=== PATIENT | female | born 1935 | race Caucasian/White ===

== ENCOUNTER 2018-07-06 13:01 | Outpatient (CLI) | payer MEDICARE, BC ==
[2018-07-06 14:59] LABS: #Eosinphils 0.2 thou/uL (0.0-0.7); #Lymphocytes 1.2 thou/uL (1.20-3.40); #Monocytes 0.6 thou/uL (0.11-0.59); #Neutrophils 3.9 thou/uL (1.40-6.50); %Basophils 0.4 % (0.0-1.0); %Eosinophils 3.7 % (0.0-10.0); %Lymphocytes 20.9 % (21.0-51.0); %Monocytes 9.6 % (0.0-10.0); %Neutrophils 65.4 % (42.0-75.0); Hemoglobin 12.6 g/dL (12.0-16.0); Mean Corpuscular HGB CONC 31.9 g/dL (32.0-36.0); Mean Platelet Volume 6.7 fL (7.4-10.4); Platelet Count 242 thou/uL (130-400); RBC Distribution Width 12.9 % (11.5-14.5); Red Blood Cell (RBC) Count 3.94 mill/uL (4.20-5.40)
[2018-07-06 15:05] LABS: Prothrombin Time 13.1 SEC (12.0-14.7)
[2018-07-06 15:11] LABS: Bilirubin Negative (Negative); Blood, Urine Negative (Negative); Clarity CLEAR (Clear); Glucose, Urine (Dipstick) Negative (Negative); Leukocyte Trace (Negative); Nitrite Negative (Negative); Protein, Urine (Dipstick) Negative (Neg-Trace); Urobilinogen 0.2 mg/dL (0.2-1.0)
[2018-07-06 15:16] LABS: Bacteria/HPF None Seen HPF (None Seen); Hyaline Casts/LPF 0-3 HYALINE CAST LPF (0-3 Hyaline); Pathc Cast-AUWi Flag 0.14 (0-2.49); RBC/HPF 0-3 HPF (0-3); Squamous Epithelial 0-3 HPF (0-3); WBC/HPF 0-3 HPF (0-3)
[2018-07-06 15:34] LABS: Anion Gap 13 mmol/L (10-20); BUN (Urea Nitrogen) 19 mg/dL (9.8-20.1); Calc. Creatinine Clearance 0 mL/min (70-130); Calcium 9.8 mg/dL (7.8-10.44); Carbon Dioxide 26 mmol/L (23-31); Chloride 102 mmol/L (98-107); Estimated GFR-MDRD 59; Glucose 135 mg/dL (83-110); Potassium 4.1 mmol/L (3.5-5.1); Sodium 137 mmol/L (136-145)
== END 2018-07-06 13:02 | disposition home or self-care (01) ==
LOC: LABBT 13:01
PROVIDERS: ATTEND Orthopaedic Surgery
DX: Z01.812 Encounter for preprocedural laboratory examination (principal); Z96.651 Presence of right artificial knee joint
CPT/HCPCS: 80048; 81001; 85025; 85610; 87081

== ENCOUNTER 2018-07-18 08:08 | Inpatient (IN) | payer MEDICARE, BC ==
[2018-07-06 13:30] VITALS: BMI 23.3
[2018-07-18] MEDS ORDERED: Midazolam HCl 2 mg/2 ml Vial ONE (08:32)
[2018-07-18] MEDS ORDERED: Fentanyl 100 MCG/2 ML VIAL ONE (08:32)
[2018-07-18] MEDS ORDERED: Ropivacaine 0.2% HCl/PF 20 ML ONE (08:32)
[2018-07-18] MEDS ORDERED: ceFAZolin Sodium 2 GM/100 ML BAG ONE (08:43)
[2018-07-18] MEDS ORDERED: Tranexamic Acid 1,000 MG/10 ML VIAL ONE (08:44)
[2018-07-18] MEDS ORDERED: Sodium Chloride 0.9% 100 ML ONE (08:48)
[2018-07-18] MEDS ORDERED: Bupivacaine 0.5% 50 ML in Sodium Chloride 0.9% 50 ML NERVE BLCK SCH (09:34)
[2018-07-18] MEDS ORDERED: Ondansetron PF 4 MG/2 ML Vial IVP PRN ×2 (09:34→10:13)
[2018-07-18] MEDS ORDERED: Promethazine HCl 25 MG/ML VIAL IM PRN ×3 (09:34→11:43)
[2018-07-18] MEDS ORDERED: HYDROcodone/Acetaminophen 5/325 mg Tablet PO PRN (09:34)
[2018-07-18] MEDS ORDERED: traMADol HCl 50 MG TAB PO PRN (09:34)
[2018-07-18] MEDS ORDERED: Fentanyl 100 MCG/2 ML VIAL IV PRN (09:35)
[2018-07-18] MEDS ORDERED: Acetaminophen 325 MG TAB PO PRN (10:13)
[2018-07-18] MEDS ORDERED: Zolpidem Tartrate 5 MG TAB PO PRN (10:13)
[2018-07-18] MEDS ORDERED: HYDROcodone/Acetaminophen 10/325 mg Tablet PO PRN ×2 (10:13)
[2018-07-18] MEDS ORDERED: diphenhydrAMINE 25 MG CAP PO PRN (10:13)
[2018-07-18] MEDS ORDERED: Melatonin 3 MG TAB PO PRN (10:16)
[2018-07-18] MEDS ORDERED: Acetaminophen 500 MG TAB PO PRN (10:16)
[2018-07-18] MEDS ORDERED: SUMAtriptan Succinate 50 MG TAB PO PRN (10:28)
[2018-07-18] MEDS ORDERED: Ondansetron HCl/PF 4 MG/2 ML Vial IVP PRN (11:43)
[2018-07-18] MEDS ORDERED: Promethazine HCl 25 MG/ML VIAL SLOW IVP PRN (11:43)
[2018-07-18] MEDS ORDERED: Ropivacaine 0.5% HCl/PF (150 MG/30 ML VIAL) ONE (11:50)
[2018-07-18] MEDS ORDERED: Lidocaine 1% PF 5 ML VIAL ONE (11:51)
[2018-07-18] MEDS ORDERED: ePHEDrine 50 MG/ML VIAL ONE (11:51)
[2018-07-18] MEDS ORDERED: Ondansetron PF 4 MG/2 ML Vial ONE (11:51)
[2018-07-18] MEDS ORDERED: PROPOFOL 200 MG/20 ML VIAL ONE (11:51)
--- NOTE | 2018-07-18 13:59 | RAD ---
RIGHT KNEE 2 VIEWS: Date: 07/18/18 HISTORY: Status post total knee replacement. FINDINGS: Recent total knee replacement changes are noted. No dislocation or periprosthetic fracture. There is evidence for a sewing needle in the medial soft tissue of the upper portion of the lower leg. IMPRESSION: Unremarkable postop total knee arthroplasty changes. Sewing needle in the medial soft tissues of the upper portion of the lower leg. POS: [facility]
[2018-07-18] MEDS: CEFAZOLIN 2 GM, Admixture Fee 1 EACH in Sodium Chloride 0.9% 100 ML IVPB SCH ×2 (16:23→21:22)
[2018-07-18] MEDS: Sodium Chloride 0.9% 1,000 ML IV SCH ×2 (16:24→20:38)
--- NOTE | 2018-07-18 18:07 | OP ---
DATE OF PROCEDURE: 07/18/2018 PREOPERATIVE DIAGNOSIS: End-stage tricompartmental osteoarthritis, right knee. POSTOPERATIVE DIAGNOSIS: End-stage tricompartmental osteoarthritis, right knee. OPERATIVE PROCEDURE: Cemented, Cruciate sparing, Computer assisted Navigated Right total knee arthroplasty. MODEL MAKER FIBERGLASS: Saurabh Mcelroy PA-C ANESTHESIA: General via LMA augmented with indwelling adductor canal block and anterior sciatic single-shot block. COMPONENTS USED: [employer] [employer] [facility] Triathlon primary cemented cruciate sparing, cemented size 4 femoral component with a size 3 cemented primary tibial base plate, 9 mm polyethylene fixed bearing insert, and A29 patella button. TOURNIQUET TIME: 49 minutes at 300 mmHg. ESTIMATED BLOOD LOSS: Less than 100. FINDINGS: End-stage severe degenerative tricompartmental disease [id number] arthrosis, periarticular osteophyte formation, large serous effusion, and hypertrophic synovium. INPUT: 1000 mL crystalloid. OUTPUT: 150 mL of clear yellow urine. DRAINS: None. SPECIMENS: None. COMPLICATIONS: None. COUNTS: Correct. INDICATION FOR SURGERY: Magda is an 82-year-old white female, who has had progressive right knee pain and problem with standing and walking for the last 5 to 7 years. She has failed conservative management and elected to proceed with total knee arthroplasty as definitive treatment of her pain. PROCEDURE IN DETAIL: After informed consent was obtained in the preoperative holding area, the patient was taken to the operative suite where general anesthesia was induced. Once adequate level of general anesthesia was obtained, the patient was positioned and a well-padded tourniquet was placed around the right proximal thigh. The right lower extremity was then prepped and draped in the usual sterile fashion. Prior to exsanguination, a time-out was called and all members of the surgical team agreed upon site, surgeon, and patient. The extremity was then exsanguinated and the tourniquet was raised. A midline longitudinal incision was then made directly over the patella extending 2 fingerbreadths above the superior pole of the patella and 2 fingerbreadths inferior to the inferior patellar pole of the patella. Deeper subcutaneous layers were dissected sharply and local bleeding was controlled with Bovie electrocautery. A quad tendon longitudinal split was then made sharply and a median parapatellar arthrotomy was carried out both sharp and with Bovie electrocautery, carried down to 1 fingerbreadth medial to the tibial tubercle. The knee was then placed into flexion and the patella was everted nicely, and a copious fat pad ectomy was performed allowing for greater exposure of the tibia. The computer-assisted distal femoral fiducial was then placed and pinned firmly, and the distal femoral cutting guide was pinned firmly into place. The oscillating saw was then used to remove the appropriate amount of bone. The 4- in-1 cutting block was then placed on the distal femur and the oscillating saw was used to remove the appropriate amount of bone off the anterior, posterior, and chamfer cuts. After completion of bone cuts, the anterior cruciate ligament was resected sharply and the posterior cruciate ligament retractor was placed and the tibia was subluxed for better exposure. Partial meniscectomies were carried out, and the tibial computer-assisted fiducial was pinned, and the cutting guide was placed. Oscillating saw was then used to remove the bone, with Hohmann retractors used to take care and protect the collateral ligaments. After the tibial resection was performed, a laminar corporate banking officer was placed in between the freshened bone cuts. The knee placed at 90 degrees and further bilateral meniscectomies were carried out , and the curved osteotome and curettage were used to remove any excess bone spurs in the posterior compartment. The trial femoral component, tibial baseplate were placed with the appropriate polyethylene trial insert with an appropriate polyethylene spacer and patellar button. The knee was taken through full range of motion with flexion and extension from 0 to 90 degrees and patellar broach squarely in the trochlea without any squinting or subluxation noted. The knee was also stable to varus and valgus stressing at 0, 15, 45, and 90 degrees of flexion. The drawer was negative. All trial components were then removed and the keel punch was used to provide the appropriate defect in the tibia with a mallet. The freshened bone cuts were copiously irrigated with pulsatile lavage of about 1.5 L to remove all excess debris. The freshened bone cuts were then dried with suction and lap sponge. The knee was placed in flexion and retractors were placed to provide access to all bone cuts. Tobramycin-impregnated methyl methacrylate cement was then placed on the freshened bone cuts and implants which were malleted firmly into place. Curettage and Trinity elevators were used to remove any excess bone cement. The knee was placed into full extension and the patellar button was placed under compression, and the cement was allowed to cure. Once completed, the components were again taken through full range of motion and copious irrigation of the knee was carried out with another liter of normal saline. All components were inspected fully with full range of motion and varus and valgus stressing. There was no laxity noted and full extension was observed clinically. Primary closure was accomplished with #2 interrupted Vicryl stitch of the arthrotomy defect. This was oversewn with a #2 running Quill barbed stitch. The subcutaneous layer was then closed with a running 0 barbed Monocryl stitch and skin closure accomplished with a running subcuticular 3-0 Monocryl barbed Quill stitch and augmented with cement on the skin. Tourniquet was lowered. Good spontaneous return of distal pulses was noted clinically and a sterile dressing was applied to the incision. The procedure was terminated without any complications. The patient was awakened in the operative suite and taken to the recovery room in stable condition. Job ID: [id number] [facility]
[2018-07-18] MEDS: Aspirin 81 mg Enteric Coated Tablet PO SCH (20:38)
[2018-07-18] MEDS: Zolpidem Tartrate 5 MG TAB PO PRN (20:38)
[2018-07-18] MEDS: Senokot S 8.6-50 MG TAB PO SCH (20:39)
[2018-07-18] MEDS: Ferrous Gluconate 324 MG TAB PO SCH (20:39)
[2018-07-18] MEDS: Fluticasone Propionate Nasal Spray 16 gm Bottle NASAL SCH (21:20)
[2018-07-18] MEDS: Anastrozole 1 MG TAB PO SCH (21:20)
[2018-07-19] MEDS: HYDROcodone/Acetaminophen 5/325 mg Tablet PO PRN ×5 (00:17→21:30)
[2018-07-19] MEDS: Ketorolac Tromethamine 30 MG/ML VIAL IVP PRN ×2 (00:28→12:56)
--- NOTE | 2018-07-19 02:39 | PDOC.PN ---
- Subjective Encounter Start Date: 07/18/18 Encounter Start Time: 22:00 Subjective: awake but a bit confused at present -: no sob -: per staff she just got sleeping pill + narcotic - Objective MAR Reviewed: Yes Vital Signs & Weight: Vital Signs (12 hours) Temp Pulse Resp BP Pulse Ox 07/19/18 00:00 99.6 F 96 16 166/84 H 96 07/18/18 20:00 98.8 F 78 16 139/81 96 Weight Weight 140 lb I&O: 07/17/18 07/18/18 07/19/18 06:59 06:59 06:59 Intake Total 100.5 Balance 100.5 Phys Exam - Physical Examination HEENT: PERRLA, moist MMs Neck: no JVD, supple Respiratory: no wheezing, no rales Cardiovascular: RRR, no significant murmur Gastrointestinal: soft, non-tender Musculoskeletal: pulses present right knee in dressing Neurological: non-focal, moves all 4 limbs Dx/Plan (1) Status post total knee replacement, right Code(s): Z96.651 - PRESENCE OF RIGHT ARTIFICIAL KNEE JOINT Status: Acute (2) H/O malignant neoplasm of breast Code(s): Z85.3 - PERSONAL HISTORY OF MALIGNANT NEOPLASM OF BREAST Status: Chronic Comment: h/o ductal ca, ER, [place] +ve on anastrazole (3) Osteoarthritis Code(s): M19.90 - UNSPECIFIED OSTEOARTHRITIS, UNSPECIFIED SITE Status: Chronic Qualifiers: Osteoarthritis location: unspecified site (4) GERD (gastroesophageal reflux disease) Code(s): K21.9 - GASTRO-ESOPHAGEAL REFLUX DISEASE WITHOUT ESOPHAGITIS Status: Chronic - Plan likely has underlying dementia or mild cognitive disorder -: is on asp bid, ropivacaine nr block, ultram, toradol and norco prn -: fentanyl prn, celexa, iron and anastrazole -: hemostable, will f/u -: to work with PT per ortho adv * . Review of Systems - Medications/Allergies Allergies/Adverse Reactions: Allergies Allergy/AdvReac Type Severity Reaction Status Date / Time No Known Allergies Allergy Verified 07/06/18 13:32 Medications: Current Medications Acetaminophen (Tylenol) 650 mg PO Q4H PRN PRN Reason: Headache/Fever or Pain Hydrocodone Bitart/Acetaminophen ([place] 5/325) 1 tab PO Q4H PRN PRN Reason: Mild Pain (1-3) Hydrocodone Bitart/Acetaminophen ([place] 5/325) 2 tab PO Q4H PRN PRN Reason: For Moderate Pain 4-6 Last Admin: 07/19/18 00:17 Dose: 2 tab Anastrozole (Arimidex) 1 mg PO HS [facility] Last Admin: 07/18/18 21:20 Dose: 1 mg Aspirin (Ecotrin) 81 mg PO BID [facility] Last Admin: 07/18/18 20:38 Dose: 81 mg Cholecalciferol (Vitamin D3) 2,000 units PO DAILY [facility] Citalopram Hydrobromide (Celexa) 20 mg PO DAILY [facility] Diphenhydramine HCl (Benadryl) 25 mg PO Q6H PRN PRN Reason: Itching Fentanyl (Sublimaze) 50 mcg IV Q1H PRN PRN Reason: moderate breakthrough pain Ferrous Gluconate (Fergon) 324 mg PO BID [facility] Last Admin: 07/18/18 20:39 Dose: 324 mg Fluticasone Propionate (Flonase Nasal [place]) 0 gm NASAL BID [facility] Last Admin: 07/18/18 21:20 Dose: 1 spr Ropivacaine 250 ml/ Device 250 mls @ 0 mls/hr [facility]ERVE BLCK [facility] Bupivacaine HCl 50 ml/ Sodium (Chloride) 100 mls @ 0 mls/hr NERVE BLCK [facility] Sodium Chloride (Normal Saline 0.9%) 1,000 mls @ 100 mls/hr IV .Q10H [facility] Last Admin: 07/18/18 20:38 Dose: Not Given Iron/Minerals/Multivitamins (Theragran M) 1 tab PO DAILY [facility] Ketorolac Tromethamine (Toradol) 15 mg IVP Q6H PRN PRN Reason: Moderate Pain (4-6) Stop: 07/21/18 09:35 Last Admin: 07/19/18 00:28 Dose: 15 mg Melatonin (Melatonin) 3 mg PO HS PRN PRN Reason: Insomnia Ondansetron HCl (Zofran) 4 mg IVP Q6H PRN PRN Reason: Nausea/Vomiting Ondansetron HCl (Zofran) 4 mg IVP Q6H PRN PRN Reason: Nausea/Vomiting Oxybutynin Chloride (Ditropan) 5 mg PO DAILY [facility] Pantoprazole Sodium (Protonix) 40 mg PO BID PRN PRN Reason: GERD Polyethylene Glycol (Miralax) 17 gm PO DAILY [facility] Promethazine HCl (Phenergan) 12.5 mg IM Q4H PRN PRN Reason: Nausea Promethazine HCl (Phenergan) 12.5 mg IM Q4H PRN PRN Reason: Nausea/Vomiting Senna/Docusate Sodium (Senokot S) 2 tab PO BID [facility] Last Admin: 07/18/18 20:39 Dose: 2 tab Sodium Chloride (Flush - Normal Saline) 10 ml IVF PRN PRN PRN Reason: Saline Flush Sumatriptan Succinate (Imitrex) 50 mg PO ONE PRN PRN Reason: Migraine Headache Stop: 07/21/18 10:29 Tramadol HCl (Ultram) 50 mg PO Q6H PRN PRN Reason: Mild Pain (1-3) Tramadol HCl (Ultram) 100 mg PO Q6H PRN PRN Reason: Moderate Pain 4-6 Zolpidem Tartrate (Ambien) 5 mg PO HSPRN PRN PRN Reason: Insomnia Last Admin: 07/18/18 20:38 Dose: 5 mg
[2018-07-19] MEDS: Sodium Chloride 0.9% 1,000 ML IV SCH ×2 (04:55→16:12)
[2018-07-19 05:28] LABS: Mean Corpuscular HGB CONC 32.1 g/dL (32.0-36.0); Mean Corpuscular Hemoglobin 31.1 pg (27.0-31.0); Mean Corpuscular Volume 96.9 fL (78.0-98.0); Mean Platelet Volume 6.9 fL (7.4-10.4); Platelet Count 178 thou/uL (130-400); RBC Distribution Width 12.9 % (11.5-14.5); Red Blood Cell (RBC) Count 3.53 mill/uL (4.20-5.40); White Blood Cell (WBC) Count 10.3 thou/uL (4.8-10.8)
--- NOTE | 2018-07-19 08:43 | PRG ---
DATE OF SERVICE: 07/19/2018 SUBJECTIVE: Ms. Man is an 82-year-old white female, postop day #1 from a right total knee arthroplasty. She is scheduled to be transferred to [facility] tomorrow. OBJECTIVE: VITAL SIGNS: Temperature 98.4, pulse 90, respiratory rate 16 and nonlabored. O2 saturation 98% on room air, and blood pressure is 117/81. GENERAL: She is alert and oriented to person, place, time, and situation, grossly nonfocal. Responsive and appropriate with examiner. EXTREMITIES: She is neurovascularly intact in both lower extremities. There is no strike through in her wound. LABORATORY DATA: Hemoglobin and hematocrit 11 and 34. IMPRESSION: An 82-year-old white female, postoperative day #1 right total knee arthroplasty, doing very well. PLAN: Continue current management and transfer to swing bed either tomorrow or on postop day #3. Job ID: [id number]
[2018-07-19] MEDS: traMADol HCl 50 MG TAB PO PRN (08:46)
[2018-07-19] MEDS: Fluticasone Propionate Nasal Spray 16 gm Bottle NASAL SCH ×2 (09:41→21:28)
[2018-07-19] MEDS: Polyethylene Glycol 3350 17 GM Packet PO SCH (09:41)
[2018-07-19] MEDS: Senokot S 8.6-50 MG TAB PO SCH ×2 (09:42→21:30)
[2018-07-19] MEDS: Oxybutynin 5 MG TAB PO SCH (09:42)
[2018-07-19] MEDS: Citalopram 20 MG TAB PO SCH (09:42)
[2018-07-19] MEDS: Aspirin 81 mg Enteric Coated Tablet PO SCH ×2 (09:42→21:30)
[2018-07-19] MEDS: Ferrous Gluconate 324 MG TAB PO SCH ×2 (09:42→21:30)
[2018-07-19] MEDS: Multivitamin W/ Minerals 1 TAB PO SCH (09:42)
[2018-07-19] MEDS: Ropivacaine HCl/PF 250 ML in Premix Bag 1 BAG NERVE BLCK SCH (10:38)
--- NOTE | 2018-07-19 16:15 | PDOC.PN ---
- Subjective Encounter Start Date: 07/19/18 Encounter Start Time: 16:14 Subjective: still has post -op pain requiring CIGARETTE MAKING EXAMINER,IV and PO narcotics -: o/w no new complaints - Objective MAR Reviewed: Yes Vital Signs & Weight: Vital Signs (12 hours) Temp Pulse Resp BP Pulse Ox 07/19/18 15:40 97.9 F 81 12 97/61 93 L 07/19/18 12:54 97.6 F 76 16 107/71 94 L 07/19/18 07:05 98.3 F 75 12 108/68 93 L 07/19/18 04:42 98.4 F 90 16 117/81 98 Weight Admit Weight 140 lb Weight 140 lb I&O: 07/18/18 07/19/18 07/20/18 06:59 06:59 06:59 Intake Total 1900.5 Output Total 850 Balance 1050.5 Result Diagrams: 07/19/18 04:59 Additional Labs: Laboratory Tests 07/06/18 07/19/18 14:25 04:59 Hgb 12.6 11.0 L Phys Exam - Physical Examination Constitutional: NAD HEENT: PERRLA, moist MMs, sclera anicteric, oral pharynx no lesions Neck: no nodes, no JVD, supple, full ROM Respiratory: no wheezing, no rales, no rhonchi, clear to auscultation bilateral Cardiovascular: RRR, no significant murmur, no rub Gastrointestinal: soft, non-tender, no distention, positive bowel sounds Musculoskeletal: no edema, pulses present Neurological: non-focal, normal sensation, moves all 4 limbs Psychiatric: normal affect, A&O x 3 Skin: no rash Dx/Plan (1) GERD (gastroesophageal reflux disease) Code(s): K21.9 - GASTRO-ESOPHAGEAL REFLUX DISEASE WITHOUT ESOPHAGITIS Status: Chronic (2) Status post total knee replacement, right Code(s): Z96.651 - PRESENCE OF RIGHT ARTIFICIAL KNEE JOINT Status: Acute (3) H/O malignant neoplasm of breast Code(s): Z85.3 - PERSONAL HISTORY OF MALIGNANT NEOPLASM OF BREAST Status: Chronic Comment: h/o ductal ca, ER, [place] +ve on anastrazole (4) Osteoarthritis Code(s): M19.90 - UNSPECIFIED OSTEOARTHRITIS, UNSPECIFIED SITE Status: Chronic Qualifiers: Osteoarthritis location: unspecified site - Plan PT/OT, DVT proph w/SCDs ASA BID for DVT prophylaxis -: HD stable. cont home meds as below -: labs in am -: IM team will follow -: pain control per primary team * . Review of Systems - Review of Systems Constitutional: negative: fever, chills, sweats, weakness, malaise, other Respiratory: negative: Cough, Dry, Shortness of Breath, Hemoptysis, SOB with Excertion, Pleuritic Pain, Sputum, Wheezing Cardiovascular: negative: chest pain, palpitations, orthopnea, paroxysmal nocturnal dyspnea, edema, light headedness, other Gastrointestinal: negative: Nausea, Vomiting, Abdominal Pain, Diarrhea, Constipation, Melena, Hematochezia, Other Genitourinary: negative: Dysuria, Frequency, Incontinence, Hematuria, Retention , Other Musculoskeletal: negative: Neck Pain, Shoulder Pain, Arm Pain, Back Pain, Hand Pain, Leg Pain, Foot Pain, Other Skin: negative: Rash, Lesions, David, Bruising, Other Neurological: negative: Weakness, Numbness, Incoordination, Change in Speech, Confusion, Seizures, Other - Medications/Allergies Allergies/Adverse Reactions: Allergies Allergy/AdvReac Type Severity Reaction Status Date / Time No Known Allergies Allergy Verified 07/06/18 13:32 Medications: Current Medications Acetaminophen (Tylenol) 650 mg PO Q4H PRN PRN Reason: Headache/Fever or Pain Hydrocodone Bitart/Acetaminophen ([place] 5/325) 1 tab PO Q4H PRN PRN Reason: Mild Pain (1-3) Hydrocodone Bitart/Acetaminophen ([place] 5/325) 2 tab PO Q4H PRN PRN Reason: For Moderate Pain 4-6 Last Admin: 07/19/18 14:21 Dose: 2 tab Anastrozole (Arimidex) 1 mg PO HS [facility] Last Admin: 07/18/18 21:20 Dose: 1 mg Aspirin (Ecotrin) 81 mg PO BID [facility] Last Admin: 07/19/18 09:42 Dose: 81 mg Cholecalciferol (Vitamin D3) 2,000 units PO DAILY [facility] Last Admin: 07/19/18 09:42 Dose: 2,000 units Citalopram Hydrobromide (Celexa) 20 mg PO DAILY [facility] Last Admin: 07/19/18 09:42 Dose: 20 mg Diphenhydramine HCl (Benadryl) 25 mg PO Q6H PRN PRN Reason: Itching Fentanyl (Sublimaze) 50 mcg IV Q1H PRN PRN Reason: moderate breakthrough pain Ferrous Gluconate (Fergon) 324 mg PO BID [facility] Last Admin: 07/19/18 09:42 Dose: 324 mg Fluticasone Propionate (Flonase Nasal [place]) 0 gm NASAL BID [facility] Last Admin: 07/19/18 09:41 Dose: 1 spr Ropivacaine 250 ml/ Device 250 mls @ 0 mls/hr NERVE BLCK INF [facility] Last Admin: 07/19/18 10:38 Dose: 250 mls Bupivacaine HCl 50 ml/ Sodium (Chloride) 100 mls @ 0 mls/hr NERV[facility] BLCK INF [facility] Sodium Chloride (Normal Saline 0.9%) 1,000 mls @ 100 mls/hr IV .Q10H [facility] Last Admin: 07/19/18 16:12 Dose: Not Given Iron/Minerals/Multivitamins (Theragran M) 1 tab PO DAILY [facility] Last Admin: 07/19/18 09:42 Dose: 1 tab Ketorolac Tromethamine (Toradol) 15 mg IVP Q6H PRN PRN Reason: Moderate Pain (4-6) Stop: 07/21/18 09:35 Last Admin: 07/19/18 12:56 Dose: 15 mg Melatonin (Melatonin) 3 mg PO HS PRN PRN Reason: Insomnia Ondansetron HCl (Zofran) 4 mg IVP Q6H PRN PRN Reason: Nausea/Vomiting Ondansetron HCl (Zofran) 4 mg IVP Q6H PRN PRN Reason: Nausea/Vomiting Oxybutynin Chloride (Ditropan) 5 mg PO DAILY [facility] Last Admin: 07/19/18 09:42 Dose: 5 mg Pantoprazole Sodium (Protonix) 40 mg PO BID PRN PRN Reason: GERD Last Admin: 07/19/18 09:42 Dose: 40 mg Polyethylene Glycol (Miralax) 17 gm PO DAILY [facility] Last Admin: 07/19/18 09:41 Dose: 17 gm Promethazine HCl (Phenergan) 12.5 mg IM Q4H PRN PRN Reason: Nausea Promethazine HCl (Phenergan) 12.5 mg IM Q4H PRN PRN Reason: Nausea/Vomiting Senna/Docusate Sodium (Senokot S) 2 tab PO BID [facility] Last Admin: 07/19/18 09:42 Dose: 2 tab Sodium Chloride (Flush - Normal Saline) 10 ml IVF PRN PRN PRN Reason: Saline Flush Last Admin: 07/19/18 09:43 Dose: 10 ml Sumatriptan Succinate (Imitrex) 50 mg PO ONE PRN PRN Reason: Migraine Headache Stop: 07/21/18 10:29 Tramadol HCl (Ultram) 50 mg PO Q6H PRN PRN Reason: Mild Pain (1-3) Tramadol HCl (Ultram) 100 mg PO Q6H PRN PRN Reason: Moderate Pain 4-6 Last Admin: 07/19/18 08:46 Dose: 100 mg Zolpidem Tartrate (Ambien) 5 mg PO HSPRN PRN PRN Reason: Insomnia Last Admin: 07/18/18 20:38 Dose: 5 mg
[2018-07-19] MEDS: Anastrozole 1 MG TAB PO SCH (21:30)
[2018-07-19] MEDS: Zolpidem Tartrate 5 MG TAB PO PRN (21:30)
[2018-07-20] MEDS: Sodium Chloride 0.9% 1,000 ML IV SCH ×3 (01:20→22:53)
[2018-07-20] MEDS: HYDROcodone/Acetaminophen 5/325 mg Tablet PO PRN ×4 (04:15→21:01)
[2018-07-20 05:07] LABS: Hemoglobin 9.8 g/dL (12.0-16.0); Mean Corpuscular HGB CONC 31.6 g/dL (32.0-36.0); Mean Corpuscular Hemoglobin 31.6 pg (27.0-31.0); Mean Platelet Volume 6.9 fL (7.4-10.4); Platelet Count 163 thou/uL (130-400); RBC Distribution Width 12.8 % (11.5-14.5); White Blood Cell (WBC) Count 8.8 thou/uL (4.8-10.8)
[2018-07-20 05:23] LABS: Anion Gap 9 mmol/L (10-20); Calc. Creatinine Clearance 50 mL/min (70-130); Calcium 8.9 mg/dL (7.8-10.44); Carbon Dioxide 29 mmol/L (23-31); Chloride 102 mmol/L (98-107); Estimated GFR-MDRD 61; Potassium 4.3 mmol/L (3.5-5.1); Sodium 136 mmol/L (136-145)
[2018-07-20 05:29] LABS: BUN (Urea Nitrogen) 26 mg/dL (9.8-20.1); Glucose 118 mg/dL (83-110)
[2018-07-20] MEDS: Fluticasone Propionate Nasal Spray 16 gm Bottle NASAL SCH ×2 (08:36→20:47)
[2018-07-20] MEDS: Senokot S 8.6-50 MG TAB PO SCH ×2 (08:37→20:46)
[2018-07-20] MEDS: Polyethylene Glycol 3350 17 GM Packet PO SCH (08:37)
[2018-07-20] MEDS: Oxybutynin 5 MG TAB PO SCH (08:37)
[2018-07-20] MEDS: Citalopram 20 MG TAB PO SCH (08:37)
[2018-07-20] MEDS: Multivitamin W/ Minerals 1 TAB PO SCH (08:37)
[2018-07-20] MEDS: Aspirin 81 mg Enteric Coated Tablet PO SCH ×2 (08:37→20:46)
[2018-07-20] MEDS: Ferrous Gluconate 324 MG TAB PO SCH ×2 (08:37→20:45)
--- NOTE | 2018-07-20 08:47 | PRG ---
DATE OF SERVICE: 07/20/2018 SUBJECTIVE: Magda is now postop day #2 from a right total knee arthroplasty. She is doing relatively well. Therapy notes demonstrate she ambulated 150 feet with standby assist yesterday evening. OBJECTIVE: GENERAL: She is alert, oriented to person, place, time, and situation. She is appropriate to examiner. VITAL SIGNS: Temperature 98.7, pulse 86, respiratory rate 18, nonlabored with O2 saturation 91% on room air, blood pressure 156/93. EXTREMITIES: Incision is clean, closed. No erythema, no strike through. NEUROVASCULAR: She is neurovascular intact in the involved extremity. LABORATORY DATA: Hemoglobin 9.8, hematocrit 31.0. IMPRESSION: An 82-year-old female, postop day #2 right total knee arthroplasty, doing well. PLAN: Continue current care, swing bed placement either Tuesday or Tuesday. Job ID: [id number]
--- NOTE | 2018-07-20 09:08 | PDOC.PN ---
- Subjective Encounter Start Date: 07/20/18 Encounter Start Time: 11:50 Subjective: Patient with pain in knee with PT. No SOB/CP/Cough/N/V. - Objective MAR Reviewed: Yes Vital Signs & Weight: Vital Signs (12 hours) Temp Pulse Resp BP Pulse Ox 07/20/18 07:13 98.7 F 86 18 156/93 H 91 L 07/20/18 04:00 98.8 F 87 18 136/76 94 L 07/20/18 00:00 97.6 F 87 18 110/70 95 Weight Admit Weight 140 lb Weight 140 lb I&O: 07/19/18 07/20/18 07/21/18 06:59 06:59 06:59 Intake Total 1900.5 1860 Output Total 850 150 Balance 1050.5 1710 Result Diagrams: 07/20/18 04:38 07/20/18 04:38 Phys Exam - Physical Examination Constitutional: NAD HEENT: moist MMs Respiratory: no wheezing, no rales, no rhonchi, clear to auscultation bilateral Cardiovascular: RRR, no significant murmur Gastrointestinal: soft, positive bowel sounds Neurological: non-focal, moves all 4 limbs Psychiatric: normal affect, A&O x 3 Dx/Plan (1) GERD (gastroesophageal reflux disease) Code(s): K21.9 - GASTRO-ESOPHAGEAL REFLUX DISEASE WITHOUT ESOPHAGITIS Status: Chronic (2) Osteoarthritis Code(s): M19.90 - UNSPECIFIED OSTEOARTHRITIS, UNSPECIFIED SITE Status: Chronic Qualifiers: Osteoarthritis location: unspecified site (3) Status post total knee replacement, right Code(s): Z96.651 - PRESENCE OF RIGHT ARTIFICIAL KNEE JOINT Status: Acute Comment: to rehab/swing bed in 1-2 days per ortho (4) H/O malignant neoplasm of breast Code(s): Z85.3 - PERSONAL HISTORY OF MALIGNANT NEOPLASM OF BREAST Status: Chronic Comment: h/o ductal ca, ER, [place] +ve on anastrazole - Plan cont current plan of care, PT/OT stable from medical standpoint * . - Discharge Day Encounter end time: 12:00
[2018-07-20] MEDS: Ketorolac Tromethamine 30 MG/ML VIAL IVP PRN (14:25)
[2018-07-20] MEDS: Ropivacaine HCl/PF 250 ML in Premix Bag 1 BAG NERVE BLCK SCH (15:29)
[2018-07-20] MEDS: Anastrozole 1 MG TAB PO SCH (20:45)
[2018-07-21] MEDS: HYDROcodone/Acetaminophen 5/325 mg Tablet PO PRN ×3 (03:24→18:32)
[2018-07-21 04:54] LABS: Hemoglobin 9.4 g/dL (12.0-16.0); Mean Corpuscular HGB CONC 32.3 g/dL (32.0-36.0); Mean Corpuscular Volume 99.1 fL (78.0-98.0); Platelet Count 174 thou/uL (130-400); RBC Distribution Width 12.7 % (11.5-14.5); Red Blood Cell (RBC) Count 2.94 mill/uL (4.20-5.40); White Blood Cell (WBC) Count 6.6 thou/uL (4.8-10.8)
[2018-07-21] MEDS: Senokot S 8.6-50 MG TAB PO SCH ×2 (07:55→08:25)
[2018-07-21] MEDS: Aspirin 81 mg Enteric Coated Tablet PO SCH ×2 (08:25→19:53)
[2018-07-21] MEDS: Multivitamin W/ Minerals 1 TAB PO SCH (08:25)
[2018-07-21] MEDS: Polyethylene Glycol 3350 17 GM Packet PO SCH (08:25)
[2018-07-21] MEDS: Ferrous Gluconate 324 MG TAB PO SCH ×2 (08:25→19:53)
[2018-07-21] MEDS: Citalopram 20 MG TAB PO SCH (08:25)
[2018-07-21] MEDS: Oxybutynin 5 MG TAB PO SCH (08:25)
[2018-07-21] MEDS: Fluticasone Propionate Nasal Spray 16 gm Bottle NASAL SCH ×2 (08:37→19:56)
[2018-07-21] MEDS: Sodium Chloride 0.9% 1,000 ML IV SCH ×2 (08:37→18:45)
--- NOTE | 2018-07-21 17:39 | PDOC.PN ---
- Subjective Encounter Start Date: 07/21/18 Encounter Start Time: 09:00 Patient seen and examined for med mngt. No new complaints. No overnight events - Objective MAR Reviewed: Yes Vital Signs & Weight: Vital Signs (12 hours) Temp Pulse Resp BP Pulse Ox 07/21/18 16:00 97.9 F 73 18 112/76 97 07/21/18 11:37 97.1 F L 73 18 111/75 93 L 07/21/18 08:04 98.2 F 76 15 119/82 94 L 07/21/18 08:00 94 L Weight Admit Weight 140 lb Weight 140 lb I&O: 07/20/18 07/21/18 07/22/18 06:59 06:59 06:59 Intake Total 1860 2885 Output Total 150 Balance 1710 2885 Result Diagrams: 07/21/18 04:26 07/20/18 04:38 Phys Exam - Physical Examination Constitutional: NAD Respiratory: no wheezing, no rhonchi Cardiovascular: RRR, no rub Gastrointestinal: soft, non-tender, positive bowel sounds Musculoskeletal: no edema Dx/Plan - Plan PT/OT, DVT proph w/SCDs 1. GERD 2. h/o Breast Ca 3. CKD 2 4. DJD PLAN: Cont current meds as below Will follow PRN Review of Systems - Review of Systems Respiratory: negative: Cough, Dry, Shortness of Breath, Hemoptysis, SOB with Excertion, Pleuritic Pain, Sputum, Wheezing Cardiovascular: negative: chest pain, palpitations, orthopnea, paroxysmal nocturnal dyspnea, edema, light headedness, other Gastrointestinal: negative: Nausea, Vomiting, Abdominal Pain, Diarrhea, Constipation, Melena, Hematochezia, Other - Medications/Allergies Allergies/Adverse Reactions: Allergies Allergy/AdvReac Type Severity Reaction Status Date / Time No Known Allergies Allergy Verified 07/06/18 13:32 Medications: Current Medications Acetaminophen (Tylenol) 650 mg PO Q4H PRN PRN Reason: Headache/Fever or Pain Hydrocodone Bitart/Acetaminophen ([place] 5/325) 1 tab PO Q4H PRN PRN Reason: Mild Pain (1-3) Hydrocodone Bitart/Acetaminophen ([place] 5/325) 2 tab PO Q4H PRN PRN Reason: For Moderate Pain 4-6 Last Admin: 07/21/18 10:33 Dose: 2 tab Anastrozole (Arimidex) 1 mg PO HS [facility] Last Admin: 07/20/18 20:45 Dose: 1 mg Aspirin (Ecotrin) 81 mg PO BID [facility] Last Admin: 07/21/18 08:25 Dose: 81 mg Cholecalciferol (Vitamin D3) 2,000 units PO DAILY [facility] Last Admin: 07/21/18 08:25 Dose: 2,000 units Citalopram Hydrobromide (Celexa) 20 mg PO DAILY [facility] Last Admin: 07/21/18 08:25 Dose: 20 mg Diphenhydramine HCl (Benadryl) 25 mg PO Q6H PRN PRN Reason: Itching Fentanyl (Sublimaze) 50 mcg IV Q1H PRN PRN Reason: moderate breakthrough pain Ferrous Gluconate (Fergon) 324 mg PO BID [facility] Last Admin: 07/21/18 08:25 Dose: 324 mg Fluticasone Propionate (Flonase Nasal [place]) 0 gm NASAL BID [facility] Last Admin: 07/21/18 08:37 Dose: 1 spr Ropivacaine 250 ml/ Device 250 mls @ 0 mls/hr NERVE BLCK INF [facility] Last Admin: 07/20/18 15:29 Dose: 250 mls Bupivacaine HCl 50 ml/ Sodium (Chloride) 100 mls @ 0 mls/hr [facility] Sodium Chloride (Normal Saline 0.9%) 1,000 mls @ 100 mls/hr IV .Q10H [facility] Last Admin: 07/21/18 08:37 Dose: Not Given Iron/Minerals/Multivitamins (Theragran M) 1 tab PO DAILY [facility] Last Admin: 07/21/18 08:25 Dose: 1 tab Melatonin (Melatonin) 3 mg PO HS PRN PRN Reason: Insomnia Last Admin: 07/20/18 21:01 Dose: 3 mg Ondansetron HCl (Zofran) 4 mg IVP Q6H PRN PRN Reason: Nausea/Vomiting Ondansetron HCl (Zofran) 4 mg IVP Q6H PRN PRN Reason: Nausea/Vomiting Oxybutynin Chloride (Ditropan) 5 mg PO DAILY [facility] Last Admin: 07/21/18 08:25 Dose: 5 mg Pantoprazole Sodium (Protonix) 40 mg PO BID PRN PRN Reason: GERD Last Admin: 07/19/18 09:42 Dose: 40 mg Polyethylene Glycol (Miralax) 17 gm PO DAILY [facility] Last Admin: 07/21/18 08:25 Dose: 17 gm Promethazine HCl (Phenergan) 12.5 mg IM Q4H PRN PRN Reason: Nausea Promethazine HCl (Phenergan) 12.5 mg IM Q4H PRN PRN Reason: Nausea/Vomiting Senna/Docusate Sodium (Senokot S) 2 tab PO BID [facility] Last Admin: 07/21/18 08:25 Dose: 2 tab Sodium Chloride (Flush - Normal Saline) 10 ml IVF PRN PRN PRN Reason: Saline Flush Last Admin: 07/20/18 08:37 Dose: 10 ml Tramadol HCl (Ultram) 50 mg PO Q6H PRN PRN Reason: Mild Pain (1-3) Tramadol HCl (Ultram) 100 mg PO Q6H PRN PRN Reason: Moderate Pain 4-6 Last Admin: 07/19/18 08:46 Dose: 100 mg Zolpidem Tartrate (Ambien) 5 mg PO HSPRN PRN PRN Reason: Insomnia Last Admin: 07/19/18 21:30 Dose: 5 mg
[2018-07-21] MEDS: Anastrozole 1 MG TAB PO SCH (21:13)
[2018-07-22] MEDS: HYDROcodone/Acetaminophen 5/325 mg Tablet PO PRN ×3 (01:30→12:30)
[2018-07-22] MEDS: traMADol HCl 50 MG TAB PO PRN ×2 (02:29→08:53)
[2018-07-22 04:41] LABS: Hemoglobin 9.5 g/dL (12.0-16.0); Mean Corpuscular HGB CONC 32.9 g/dL (32.0-36.0); Mean Corpuscular Hemoglobin 32.6 pg (27.0-31.0); Mean Corpuscular Volume 98.9 fL (78.0-98.0); Mean Platelet Volume 6.8 fL (7.4-10.4); Platelet Count 213 thou/uL (130-400); RBC Distribution Width 12.6 % (11.5-14.5); Red Blood Cell (RBC) Count 2.91 mill/uL (4.20-5.40); White Blood Cell (WBC) Count 5.8 thou/uL (4.8-10.8)
[2018-07-22] MEDS: Sodium Chloride 0.9% 1,000 ML IV SCH ×2 (04:47→13:09)
[2018-07-22] MEDS: Multivitamin W/ Minerals 1 TAB PO SCH (08:42)
[2018-07-22] MEDS: Polyethylene Glycol 3350 17 GM Packet PO SCH (08:42)
[2018-07-22] MEDS: Aspirin 81 mg Enteric Coated Tablet PO SCH (08:43)
[2018-07-22] MEDS: Oxybutynin 5 MG TAB PO SCH (08:43)
[2018-07-22] MEDS: Citalopram 20 MG TAB PO SCH (08:43)
[2018-07-22] MEDS: Senokot S 8.6-50 MG TAB PO SCH ×2 (08:43→08:54)
[2018-07-22] MEDS: Ferrous Gluconate 324 MG TAB PO SCH (08:43)
[2018-07-22] MEDS: Fluticasone Propionate Nasal Spray 16 gm Bottle NASAL SCH (08:44)
[2018-07-22 11:46] VITALS: BP 119/80; TEMP 97.6
--- NOTE | 2018-07-22 13:32 | PDOC.PN ---
- Subjective Encounter Start Date: 07/22/18 Encounter Start Time: 08:20 Pt seen for followup re: GERD. No complaints today. - Objective Vital Signs & Weight: Vital Signs (12 hours) Temp Pulse Resp BP Pulse Ox 07/22/18 11:04 97.6 F 65 18 119/80 95 07/22/18 08:00 95 07/22/18 07:07 97.7 F 74 18 147/94 H 95 07/22/18 04:00 97.7 F 79 20 126/79 95 Weight Admit Weight 140 lb Weight 140 lb I&O: 07/21/18 07/22/18 07/23/18 06:59 06:59 06:59 Intake Total 2885 0 Balance 2885 0 Result Diagrams: 07/22/18 04:09 07/20/18 04:38 Phys Exam - Physical Examination Constitutional: NAD HEENT: moist MMs Neck: supple Respiratory: clear to auscultation bilateral Cardiovascular: RRR Gastrointestinal: soft s/p R knee surgery Neurological: moves all 4 limbs Psychiatric: normal affect Dx/Plan (1) GERD (gastroesophageal reflux disease) Code(s): K21.9 - GASTRO-ESOPHAGEAL REFLUX DISEASE WITHOUT ESOPHAGITIS Status: Chronic Comment: stable (2) Osteoarthritis Code(s): M19.90 - UNSPECIFIED OSTEOARTHRITIS, UNSPECIFIED SITE Status: Chronic Qualifiers: Osteoarthritis location: unspecified site Comment: s/p R knee surgery - Plan PT/OT, out of bed/ambulate * . Review of Systems - Review of Systems Respiratory: negative: Cough, Shortness of Breath, SOB with Excertion, Pleuritic Pain, Wheezing Cardiovascular: negative: chest pain, palpitations, orthopnea, paroxysmal nocturnal dyspnea, edema, light headedness - Medications/Allergies Allergies/Adverse Reactions: Allergies Allergy/AdvReac Type Severity Reaction Status Date / Time No Known Allergies Allergy Verified 07/06/18 13:32 Medications: Current Medications Acetaminophen (Tylenol) 650 mg PO Q4H PRN PRN Reason: Headache/Fever or Pain Hydrocodone Bitart/Acetaminophen ([place] 5/325) 1 tab PO Q4H PRN PRN Reason: Mild Pain (1-3) Hydrocodone Bitart/Acetaminophen ([place] 5/325) 2 tab PO Q4H PRN PRN Reason: For Moderate Pain 4-6 Last Admin: 07/22/18 12:30 Dose: 2 tab Anastrozole (Arimidex) 1 mg PO HS [facility] Last Admin: 07/21/18 21:13 Dose: 1 mg Aspirin (Ecotrin) 81 mg PO BID [facility] Last Admin: 07/22/18 08:43 Dose: 81 mg Cholecalciferol (Vitamin D3) 2,000 units PO DAILY [facility] Last Admin: 07/22/18 08:42 Dose: 2,000 units Citalopram Hydrobromide (Celexa) 20 mg PO DAILY [facility] Last Admin: 07/22/18 08:43 Dose: 20 mg Diphenhydramine HCl (Benadryl) 25 mg PO Q6H PRN PRN Reason: Itching Fentanyl (Sublimaze) 50 mcg IV Q1H PRN PRN Reason: moderate breakthrough pain Last Admin: 07/21/18 19:58 Dose: 50 mcg Ferrous Gluconate (Fergon) 324 mg PO BID [facility] Last Admin: 07/22/18 08:43 Dose: 324 mg Fluticasone Propionate (Flonase Nasal [place]) 0 gm NASAL BID [facility] Last Admin: 07/22/18 08:44 Dose: Not Given Ropivacaine 250 ml/ Device 250 mls @ 0 mls/hr NERVE BLCK INF [facility] Last Admin: 07/20/18 15:29 Dose: 250 mls Bupivacaine HCl 50 ml/ Sodium (Chloride) 100 mls @ 0 mls/hr NERVE BLCK INF [facility] Sodium Chloride (Normal Saline 0.9%) 1,000 mls @ 100 mls/hr IV .Q10H [facility] Last Admin: 07/22/18 13:09 Dose: Not Given Iron/Minerals/Multivitamins (Theragran M) 1 tab PO DAILY [facility] Last Admin: 07/22/18 08:42 Dose: 1 tab Melatonin (Melatonin) 3 mg PO HS PRN PRN Reason: Insomnia Last Admin: 07/20/18 21:01 Dose: 3 mg Ondansetron HCl (Zofran) 4 mg IVP Q6H PRN PRN Reason: Nausea/Vomiting Ondansetron HCl (Zofran) 4 mg IVP Q6H PRN PRN Reason: Nausea/Vomiting Oxybutynin Chloride (Ditropan) 5 mg PO DAILY [facility] Last Admin: 07/22/18 08:43 Dose: 5 mg Pantoprazole Sodium (Protonix) 40 mg PO BID PRN PRN Reason: GERD Last Admin: 07/19/18 09:42 Dose: 40 mg Polyethylene Glycol (Miralax) 17 gm PO DAILY [facility] Last Admin: 07/22/18 08:42 Dose: 17 gm Promethazine HCl (Phenergan) 12.5 mg IM Q4H PRN PRN Reason: Nausea Promethazine HCl (Phenergan) 12.5 mg IM Q4H PRN PRN Reason: Nausea/Vomiting Senna/Docusate Sodium (Senokot S) 2 tab PO BID [facility] Last Admin: 07/22/18 08:54 Dose: 2 tab Sodium Chloride (Flush - Normal Saline) 10 ml IVF PRN PRN PRN Reason: Saline Flush Last Admin: 07/20/18 08:37 Dose: 10 ml Tramadol HCl (Ultram) 50 mg PO Q6H PRN PRN Reason: Mild Pain (1-3) Tramadol HCl (Ultram) 100 mg PO Q6H PRN PRN Reason: Moderate Pain 4-6 Last Admin: 07/22/18 08:53 Dose: 100 mg Zolpidem Tartrate (Ambien) 5 mg PO HSPRN PRN PRN Reason: Insomnia Last Admin: 07/19/18 21:30 Dose: 5 mg
--- NOTE | 2018-07-23 19:00 | DIS ---
DATE OF ADMISSION: 07/19/2018 DATE OF DISCHARGE: 07/22/2018 PRIMARY CARE PROVIDER: Unknown. DISCHARGE DIAGNOSES: 1. Gastroesophageal reflux disease. 2. Osteoarthritis. 3. Status post right total knee arthroplasty. CONDITION OF PATIENT ON THE DAY OF DISCHARGE: Stable. I assessed Ms. Giraldo on the day of discharge. Please refer to my daily progress note for further details regarding this [id number] encounter. DISCHARGE MEDICATIONS: 1. Tramadol p.r.n. 2. Acetaminophen p.r.n. 3. Arimidex 1 mg at bedtime. 4. Vitamin D3 of 2000 units daily. 5. Citalopram 20 mg daily. 6. Eletriptan 40 mg daily. 7. Flonase 1 spray to each naris daily. 8. Melatonin 3 mg at bedtime as needed. 9. Mobic 7.5 mg every 6 hours as needed. 10. Omeprazole 40 mg 2 times a day. 11. Oxybutynin 5 mg daily. 12. MiraLAX 17 g daily. HOSPITAL COURSE: Ms. Giraldo is a pleasant 82-year-old lady, who was admitted by Orthopedic Surgery Service for right total knee arthroplasty. Hospitalist Service was consulted for management of medical comorbidities including gastroesophageal reflux disease and history of breast cancer. She continued to improve. She is being discharged to [facility] for further management. DISCHARGE DESTINATION: [facility]. TOTAL AMOUNT OF TIME SPENT ON THIS DISCHARGE: 14 minutes. Job ID: [id number]
== END 2018-07-22 15:10 | disposition swing bed (61) | DRG 470 ==
LOC: SDC 08:08 → SJJU 13:34 → SDC 07-19 11:51
PROVIDERS: ADMIT Orthopaedic Surgery; ATTEND Orthopaedic Surgery
PROC: 0SRC0J9 Replacement of Right Knee Joint with Synthetic Substitute, Cemented, Open Approach (ICD-10-PCS; principal; 2018-07-19)
DX: M17.11 Unilateral primary osteoarthritis, right knee (principal); Z85.3 Personal history of malignant neoplasm of breast; K21.9 Gastro-esophageal reflux disease without esophagitis
CPT/HCPCS: 36415; 80048; 85027; 86850; 86900; 86901; C1713; C1776; J0690; J1885; J2001; J2250; J2405; J2704; J2795; J3010; J3370; J3490; J7050